=== PATIENT | male | born 1950 | race Caucasian/White ===

== ENCOUNTER → 2017-09-26 | Outpatient (CLI) | payer MEDICARE, OTHER | LOC: M.RAD 09:31 | DX: M18.0 Bilateral primary osteoarthritis of first carpometacarpal joints (principal); Z87.81 Personal history of (healed) traumatic fracture ==

== ENCOUNTER → 2018-03-06 | Outpatient (CLI) | payer OTHER | LOC: M.RAD 11:53 | DX: M19.071 Primary osteoarthritis, right ankle and foot (principal) ==

== ENCOUNTER → 2018-03-12 | Outpatient (CLI) | payer OTHER | LOC: M.MRI 06:44 | DX: S86.011A Strain of right Achilles tendon, initial encounter (principal); M76.61 Achilles tendinitis, right leg; M67.471 Ganglion, right ankle and foot; X58.XXXA Exposure to other specified factors, initial encounter; Y93.89 Activity, other specified; Y92.89 Other specified places as the place of occurrence of the external cause; Y99.8 Other external cause status ==

== ENCOUNTER → 2018-06-13 | Outpatient (CLI) | payer OTHER | LOC: M.CT 09:07 | DX: G31.9 Degenerative disease of nervous system, unspecified (principal); R53.83 Other fatigue; R42 Dizziness and giddiness; R63.1 Polydipsia; G44.52 New daily persistent headache (NDPH) ==

== ENCOUNTER → 2020-11-03 | Outpatient (CLI) | payer OTHER | LOC: M.MRI 07:09 | PROVIDERS: ATTEND Orthopaedic Surgery | DX: S83.242A Other tear of medial meniscus, current injury, left knee, initial encounter (principal); M17.12 Unilateral primary osteoarthritis, left knee; X58.XXXA Exposure to other specified factors, initial encounter; Y93.89 Activity, other specified; Y92.89 Other specified places as the place of occurrence of the external cause; Y99.8 Other external cause status ==

== ENCOUNTER → 2020-12-27 | Outpatient (CLI) | payer OTHER ==
[~2020-12-27] MED LIST: ALEVE220 MG PO; ALLOPURINOL 10100 M3 PO; BENAZEPRIL-HCT1 EA10 PO; CHILDREN'S ASPI81 M1 PO; HYDROCODON-ACE1 EAC7 PO; HYDROXYCHLOROQ200 M1 PO; SIMVASTATIN40 MG PO
[2020-12-27 10:16] LABS: ABSOLUTE EOSINOPHILS 0.1 thou/uL (0.0-0.7); ABSOLUTE LYMPHOCYTES 2.2 thou/uL (0.8-5.3); ABSOLUTE MONOCYTES 0.5 thou/uL (0.0-1.2); ABSOLUTE NEUTROPHILS 1.8 thou/uL (1.6-8.1); HEMATOCRIT 40.8 % (42.0-52.0); HEMOGLOBIN 13.7 gm/dL (14.0-18.0); LYMPHOCYTES 47.3 %; MCH 30.8 pg (26.0-34.0); MCHC 33.6 g/dL (28.0-37.0); MCV 91.6 fL (80.0-100.0); MPV 6.9 fl. (7.2-11.1); NUCLEATED RBCS 0 /100WBC; PLATELET COUNT* 245 thou/uL (150-400); POLYS 38.7 %; RBC 4.45 mil/uL (4.50-6.00); RDW-CV 13.5 % (10.5-14.5); WBC 4.7 thou/uL (4.0-11.0)
[2020-12-27 10:18] LABS: URINE BILIRUBIN NEGATIVE (Negative); URINE BLOOD NEGATIVE (Negative); URINE CLARITY CLEAR; URINE COLOR YELLOW; URINE GLUCOSE-RANDOM NEGATIVE (Negative); URINE KETONES NEGATIVE (Negative); URINE LEUKOCYTES-REFLEX NEGATIVE (Negative); URINE NITRITE-REFLEX NEGATIVE (Negative); URINE PROTEIN NEGATIVE (Negative); URINE SPECIFIC GRAVITY >= 1.030 (1.005-1.030); URINE UROBILINOGEN 0.2 E.U./dl (0.2-1.0)
[2020-12-27 10:23] LABS: PROTIME 10.5 Seconds (9.20-11.50)
[2020-12-27 10:25] LABS: ALBUMIN 3.8 g/dL (3.4-5.0); CALCIUM 8.9 mg/dL (8.5-10.1); TOTAL BILIRUBIN 0.3 mg/dL (<0.1-1.0); TOTAL PROTEIN 6.8 g/dL (6.4-8.2)
--- NOTE | 2020-12-27 12:16 | EKG ---
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
== END ==
LOC: M.LAB 09:50
PROVIDERS: ATTEND Orthopaedic Surgery
DX: Z01.818 Encounter for other preprocedural examination (principal); Z01.812 Encounter for preprocedural laboratory examination

== ENCOUNTER 2021-01-03 06:57 | Observation (INO) | payer OTHER ==
[~2021-01-03] VITALS: Ht 180.3 cm; Wt 95.3 kg
[2021-01-03 07:30] VITALS: BP 149/80
[2021-01-03 11:45] VITALS: BP 130/74
[2021-01-03 16:35] VITALS: BP 139/79
[2021-01-03 20:30] VITALS: BP 147/78
[2021-01-04 01:24] VITALS: BP 145/70
[2021-01-04 04:47] LABS: CALCIUM 8.3 mg/dL (8.5-10.1); POTASSIUM 3.9 mmol/L (3.5-5.1)
[2021-01-04 04:51] LABS: HEMATOCRIT 32.5 % (42.0-52.0); HEMOGLOBIN 11.3 gm/dL (14.0-18.0)
[2021-01-04 08:00] VITALS: BP 138/70
--- NOTE | 2021-01-04 11:15 | OP ---
[address] [address] OPERATIVE REPORT Name: DAWN SALOMON Ale Room: [address] MyaRMarya#: [id number] Admission: 01/03/21 Attend Phys: Ale Bailey Discharge: Date of : 54 Report #: [id number] THIS REPORT FOR: cc: Jacinto Ny MD, Dean L. MD Greiner, Robert F. II DO ~ DOC #: [id number] Bay Desouza II, DO DATE OF SURGERY: 01/03/2021 PREOPERATIVE DIAGNOSIS: Left knee osteoarthritis. POSTOPERATIVE DIAGNOSIS: Left knee osteoarthritis. PROCEDURE: Left total knee arthroplasty. SURGEON: Bay Desouza II, DO [employer]PERVIS[employer] LE[employer] BURNING: None. ANESTHESIA: General endotracheal. ESTIMATED BLOOD LOSS: 50 mL ANTIBIOTICS: Ancef preoperatively. DRAINS: Medium Hemovac. COMPLICATIONS: None. INDICATIONS: The patient stable to recovery room. IMPLANTS: Listed in operative record and progress note. BRIEF HISTORY: The patient was seen in the preoperative area. Preoperative H and P was performed. Site was marked, questions were answered. Risks and benefits were discussed with the patient in detail about surgery. The patient wished to proceed, assuming all risks. DESCRIPTION OF PROCEDURE: The patient was taken to the operative suite, placed supine on the operating table and appropriate anesthesia. A well-padded tourniquet applied to the affected thigh, which was inflated to 300 mmHg after gravity exsanguination. The operative knee was sterilely prepped and draped. Surgery began by midline incision, carried down through skin and subcutaneous tissues. A medial parapatellar arthrotomy was performed and carried down to bone. Patella was then everted and excess soft tissue removed from the femur. [facility] [address] [id number] OPERATIVE REPORT Name: DAWN SALOMON Room: [address] Naina Wolf#: [id number] Admission: 01/03/21 Attend Phys: Ale Bailey Discharge: Date of : 54 Report #: [id number] The femoral cutting block was then applied and checked with a drop rotation alignment, pinned in appropriate position, and appropriate cuts were made. The 4-in-1 cutting block was then applied, checked for rotation alignment, pinned in appropriate, and appropriate cuts were made. Tibia was exposed. Excess meniscus was removed. Retractor was placed on collateral ligaments. The tibial cutting block was then applied, pinned in appropriate position, checked with a drop priyanka for rotation alignment and slope. An appropriate cut was made. Tibial bone was removed. The tibial base plate was then applied, checked for rotation alignment with a drop priyanka and pinned into position. The femur was then applied and box cut was reamed. This was then trialed with appropriate spacer, which showed excellent fit and fill and excellent stability of the knee though all range of motion. The patella was reamed in appropriate fashion, sized appropriate size, 3 peg holes were drilled and it was then trialed and showed excellent flexion, extension, excellent tracking of the patella within the groove. These trial was then removed. The tibia was punched in appropriate fashion. Bone ends were cleansed with Pulsavac irrigation and cement was mixed and applied to final implants. These were malleted into position, held the knee in extension and compressed to allow cement to cure. After it cured, excess was removed using [employer]ed [employer] and osteotome. The wound was then copiously irrigated and the final spacer was then malleted into position. The tourniquet was deflated. Hemostasis was obtained with electrocautery. Pain cocktail was injected. Medium Hemovac drain was applied. Capsule was closed with #2 FiberWire and #1 Vicryl in lnxpcl-nm-yraci fashion. Skin was closed with 2-0 Vicryl and a running 3-0 Monocryl. Dermabond and sterile dressing applied. Hair wrap and PolarCare applied. The patient transported to recovery in stable condition. Counts were correct throughout the procedure. Bay Desouza II, DO RFG/NANCY/AMI <ELECTRONICALLY SIGNED> By: Bay Desouza II, DO 01/04/21 1115 2145 2311Roberbarney Desouza II, DO /nt
[2021-01-04 11:19] VITALS: BP 138/70
[2021-01-04 14:29] VITALS: BP 138/70
== END 2021-01-04 15:37 | disposition home or self-care (01) ==
LOC: M.PRE → M.ORTHSURG 06:57 → M.TBA 06:57 → M.ORTHSURG 08:47 → M.TBA 08:47 → M.PRE 09:12 → EDSTATUS 10:46 → M.PRE 11:36 → M.ORTHSURG 12:05 → M.PRE 12:15 → M.ORTHSURG 01-04 15:37
PROVIDERS: Family Medicine; Orthopaedic Surgery; ADMIT Internal Medicine; ATTEND Internal Medicine
DX: M17.12 Unilateral primary osteoarthritis, left knee (principal); I10 Essential (primary) hypertension; E78.5 Hyperlipidemia, unspecified; G89.29 Other chronic pain; Z98.2 Presence of cerebrospinal fluid drainage device; Z79.899 Other long term (current) drug therapy; Z88.5 Allergy status to narcotic agent

== ENCOUNTER 2021-01-11 05:21 | Emergency (ER) | payer OTHER ==
[~2021-01-11] VITALS: Ht 180.3 cm; Wt 95.3 kg
[2021-01-11] MEDS ORDERED: BLOOD THINNER (05:36)
[2021-01-11] MEDS ORDERED: PERCOCET 5-3251 EACH PO (05:36)
[2021-01-11 06:15] LABS: HEMATOCRIT 29.1 % (42.0-52.0); HEMOGLOBIN 10.2 gm/dL (14.0-18.0); MCH 31.3 pg (26.0-34.0); MCHC 34.9 g/dL (28.0-37.0); MCV 89.6 fL (80.0-100.0); MPV 6.7 fl. (7.2-11.1); RBC 3.25 mil/uL (4.50-6.00); RDW-CV 13.6 % (10.5-14.5); WBC 8.1 thou/uL (4.0-11.0)
[2021-01-11 06:24] LABS: CALCIUM 8.8 mg/dL (8.5-10.1); POTASSIUM 4.1 mmol/L (3.5-5.1)
[2021-01-11 06:28] LABS: ALBUMIN 3.4 g/dL (3.4-5.0); TOTAL BILIRUBIN 0.5 mg/dL (<0.1-1.0); TOTAL PROTEIN 7.2 g/dL (6.4-8.2)
[2021-01-11] MEDS ORDERED: PERCOCET PO (08:12)
[2021-01-11 08:27] VITALS: BP 140/76
== END 2021-01-11 08:28 | disposition home or self-care (01) ==
LOC: M.ERS 05:21
PROVIDERS: Personal Emergency Response Attendant
DX: G89.18 Other acute postprocedural pain (principal); M25.562 Pain in left knee; R60.0 Localized edema; Z88.5 Allergy status to narcotic agent